=== PATIENT | female | born 1935 | race Caucasian/White ===

== ENCOUNTER → 2017-01-14 | Outpatient (CLI) | payer MEDICARE, OTHER | LOC: GMAJ 11:26 | PROVIDERS: ATTEND Family Medicine | DX: I10 Essential (primary) hypertension (principal) ==

== ENCOUNTER → 2017-07-24 | Outpatient (CLI) | payer MEDICARE, OTHER ==
--- NOTE | 2017-07-25 06:36 | CT ---
EXAM DESCRIPTION: CT ABDOMEN AND PELVIS WITHOUT CONTRAST CLINICAL HISTORY: RUQ PAIN COMPARISON: None Available. TECHNIQUE: CT of the abdomen and pelvis without IV contrast. FINDINGS: Abdomen: The liver has normal size and density. Prior cholecystectomy. Intrabiliary air is likely due to prior manipulation. The spleen, pancreas, and adrenal glands are unremarkable. The kidneys have normal size and contour without evidence of hydronephrosis. No obstructing ureteral calculi. Aortoiliac atherosclerosis without aneurysm. No free intraperitoneal air. Small hiatal hernia. Pelvis: Prior hysterectomy. Urinary bladder is unremarkable. No free pelvic fluid or lymphadenopathy. Scattered diverticula of the sigmoid colon. No pericolic fat stranding. No evidence of acute appendicitis. The visualized lung bases are clear. No destructive bone lesions identified. Degenerative change of the spine. DLP: 662.74 mGy-cm IMPRESSION: 1. No acute inflammatory or obstructive abnormality identified. 2. Diverticulosis without evidence of diverticulitis. This exam was performed according to our departmental dose-optimization program, which includes automated exposure control, adjustment of the mA and/or kV according to patient size and/or use of iterative reconstruction technique. Electronically signed by: Manuel Mazariegos 07/25/2017 6:35 AM CDT
== END ==
LOC: CT 11:33
PROVIDERS: ATTEND Family Medicine
DX: R10.11 Right upper quadrant pain (principal); K57.30 Diverticulosis of large intestine without perforation or abscess without bleeding

== ENCOUNTER → 2020-06-12 | Outpatient (CLI) | payer MEDICARE, OTHER ==
--- NOTE | 2020-06-13 09:13 | RAD ---
EXAM DESCRIPTION: Barium Swallow: Rad-Fluoroscopy. CLINICAL HISTORY: DYSPHAGIA. Known Hiatal Hernia. COMPARISON: None TECHNIQUE: Fluoroscopy performed by Dr. Olvera The patient swallowed barium pill with water. The patient swallowed gas-producing granules, water, and heavy density barium under fluoroscopic visualization. The images were obtained with the patient standing and horizontal.. Patient drank medium density barium through a straw in the semi-prone position. 79 fluoroscopic cine loop images. 13 single static fluoroscopic images. Total fluoroscopy time was 3.2 minutes. DAP: 21.1 Gy-cm2.. FINDINGS: Patient swallowed barium pill with water and there was minimal delay at the gastroesophageal junction. Swallowing appears symmetric and timely on the AP and lateral fluoroscopy. No laryngeal penetration or aspiration. Primary peristaltic wave in the proximal two thirds of the esophagus. Distal third shows secondary and tertiary contractions. Intraesophageal reflux is noted standing position but increases when horizontal. Sliding hiatal hernia with Schatzki's ring is visualized. No distal esophageal mucosal lesions. Persistent narrowing just below the aortic arch seen on several sequences; no mucosal lesions. Only trace amount of gastroesophageal reflux elicited by coughing and Valsalva maneuvers. Moderate distention of the stomach with no gross mucosal lesions and no mass effect. Gastroduodenal junction is patent. Small diverticulum on the second portion of the duodenum. No gross mucosal lesions and no mass effect. IMPRESSION: 1. No significant abnormality seen during swallowing mechanism. 2. Persistent narrowing of the esophagus just below the aortic arch. No mucosal lesions. 3. Primary peristaltic wave in the proximal two thirds of the esophagus. Significant intraesophageal reflux and decreased clearing of esophagus in the horizontal position. Trace gastroesophageal reflux elicited by maneuvers increasing intra-abdominal pressure. 4. Moderate sliding hiatal hernia. 5. No gross mucosal lesions in the stomach or duodenum. Diverticulum on the second portion of the duodenum. Electronically signed by: Devin Olvera MD 06/13/2020 9:12 AM CDT
== END ==
LOC: RAD 08:50
PROVIDERS: ATTEND Dermatology
DX: K22.4 Dyskinesia of esophagus (principal); K21.9 Gastro-esophageal reflux disease without esophagitis; K22.8 Other specified diseases of esophagus; K44.9 Diaphragmatic hernia without obstruction or gangrene; K57.10 Diverticulosis of small intestine without perforation or abscess without bleeding; R19.7 Diarrhea, unspecified